=== PATIENT | female | born 1960 | race African-American/Black ===

== ENCOUNTER → 2018-02-11 | Outpatient (CLI) | payer OTHER | LOC: M.RAD 02-10 16:00 | DX: Z12.31 Encounter for screening mammogram for malignant neoplasm of breast (principal) ==

== ENCOUNTER → 2019-06-02 | Outpatient (CLI) | payer OTHER | LOC: M.RAD 13:43 | DX: Z12.31 Encounter for screening mammogram for malignant neoplasm of breast (principal) ==